=== PATIENT | male | born 1960 | race Caucasian/White ===

== ENCOUNTER → 2023-02-07 13:09 | Outpatient (REF) | payer OTHER, SELFPAY | LOC: RAD 13:09 | PROVIDERS: ATTENDING PHYSICIAN Internal Medicine | DX: E04.1 Nontoxic single thyroid nodule (principal) | CPT/HCPCS: 76536 ==

== ENCOUNTER → 2023-10-24 20:33 | Outpatient (REF) | payer OTHER, SELFPAY | LOC: MRI 3T 20:33 | PROVIDERS: ATTENDING PHYSICIAN Physician Assistant Medical | DX: M54.12 Radiculopathy, cervical region (principal); M50.20 Other cervical disc displacement, unspecified cervical region | CPT/HCPCS: 72141 ==